=== PATIENT | male | born 1985 | race Caucasian/White ===

== ENCOUNTER 2025-04-22 15:19 | Outpatient (OUT) | payer OTHER, SELFPAY ==
--- OUTSIDE RECORDS SUMMARY | 2025-04-22 15:25 | XMS_ITS | Patient Health Record ---
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 Phone Ousmane Siddiqui Primary Care Provider Allergies No Known Allergies Reason For Referral No Information Medications Medication SIG (Take, Route, Frequency, Duration) Notes Start Date End Date Status Diclofenac Sodium 75 MG 1 tablet as need ed Orally Twice a day; Duration: 30 days 5ActivetiZANidine HCl 4 MG2 tabs Orally qhs; Duration: 30 days 5Active Social History Tobacco Use: Social History Observation Description Date Details (start date - stop date) Current Smoker NA - NA Tobacco Control (Standard) Question Answer Notes Tobacco use: Current smoker AUDIT-C (Standard) Question Answer Notes Did you have a drink containing alcohol in the p ast year? Yes How often did you have a drink containing alcohol in the past year?Monthly or less (1 point)How many drinks did you have on a typical day when you were drinking in the past year?3 or 4 drinks (1 point)How often did you have six or more drinks on one occasion in the past year?4 or more times a week (4 points) Efrcoo3LxztouvkofcwnbYgtabcel Problems Problem Type SNOMED Code ICD Code Onset Dates Problem Status W/U Status Risk Notes Problem Cervical radiculopathy (58903472) Cervica l radiculopathy (M54.12) Activeconfirmed Vital Signs Blood pressure diastolic 64 mm Hg 04/22/2025 Mscryb01 in04/22/2025lood pressure rqdgnoxt269 mm Hg04/22/20259531Azpzho323 lbs 04/22/2025BMI20.03 kg/m204/22/2025 Encounters Encounter Location Date Provider Diagnosis [facility] [address] [place] [address] 04/22/2025 Ousmane Siddiqui Cervical radiculopat hy M54.12 Assessments Encounter Date Diagnosis (ICD Code) Assessment Notes Treatment Notes Treatment Clinical Notes Section Notes 04/22/2025 Cervical radiculopathy (ICD-10 - M54.12) nujmbness intop left arm and progressively worse - over last 5-6 months - needs MRI04/22/2025OtherRecommended to rest and use a heating pad on the area. Take NSAIDs for pain as needed Plan Of Treatment Pending Test Test Name Order Date MRI CSPINE WO CON 04/22/2025 XR cervical spine 2-3V 04/22/2025 Insurance Providers Payer Name Payer Address Payer Phone Subscriber Number Group Number Insured Name Patient Relationship to Insured Coverage Start Date Coverage End Date MMO [employer] [address] [place] [address] [id number] Chauncey Worthington - patient is the insured Medications Administered Medication Instructions Date of Administration Dosage Notes Ketorolac Tromethamine mgmethylPREDNISolone Zpnxkmt4520 mgOrphenadrine Citrate mg
--- OUTSIDE RECORDS SUMMARY | 2025-04-22 15:25 | XMS_ITS | Clinical Summary ---
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 Phone Unavailable Primary Care Provider Unavailabl e Social History Tobacco UseTypesPacks/DayYears UsedDateSmoking Tobacco: Never AssessedSex and Gender InformationValueDate RecordedSex Assigned at BirthNot on fileLegal Sex Male07/07/2022 10:53 PM EDTGender IdentityNot on fileSexual OrientationNot on file Last Filed Vital Signs Vital SignReadingTime TakenCommentsBlood Pressure--Pulse--Temperature-- Respiratory Rate--Oxygen Saturation--Inhaled Oxygen Concentration--Rpvwfb06 kg (150 lb)11/22/2019 12:00 PM PJZVziwlo020 cm (6' 4 )11/22/2019 12:00 PM EDTBody Mass Index18.26011/22/2019 12:00 PM EDT Plan of Treatment Not on file
--- NOTE | 2025-04-22 15:26 | XR_ITS ---
The [address] [address] Patient Name: RAMONE COBURN MRN: [facility]:[id number] date: 1985 Sex: M Assigned Patient Location: [facility] Current Patient Location: Accession/Order Number: [id number] Exam Date: 04/22/2025 15:32 Report Date: 04/23/2025 00:58 At the request of: PATRICIA BOSS MD Procedure: XR cervical spine 2-3V XR cervical spine 2-3V 04/22/2025 3:38 PM SIGNS AND SYMPTOMS: ^Cervical Radiculopathy PROTOCOLS: Frontal and lateral radiograph of the cervical spine COMPARISON: None FINDINGS: The bones are in anatomic alignment. There is preservation of the vertebral body heights. There is mild to moderate disc height loss at C4-C5, C5-C6, and C6-7 with accompanying anterior osteophyte formation and uncovertebral joint spurring. The atlantoaxial joint is preserved. There is no fracture or destructive lesion. XR/XR cervical spine 2-3V IMPRESSION: No fracture or subluxation. Degenerative changes are noted as above. Impression dictated by: Boris Curran M.D. 04/23/2025 12:58 AM Dictation Location: [place] [address] Electronically authenticated by: [id number] Y Date: 04/23/2025 00:58
== END 2025-04-22 15:20 | disposition home or self-care (01) ==
PROVIDERS: PCP Family Medicine; Visit Provider Family Medicine
DX: M54.12 Radiculopathy, cervical region (principal); M50.30 Other cervical disc degeneration, unspecified cervical region
CPT/HCPCS: 72040